=== PATIENT | female | born 2000 | race Caucasian/White ===

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

== ENCOUNTER 2024-07-10 16:55 | Emergency (ER) | payer MEDICAID, OTHER ==
[~2024-07-10] VITALS: Ht 160 cm; Wt 56.7 kg
[2024-07-10 16:58] VITALS: BP 122/78; PULSE 80; RESP 16; TEMP 98.5; O2SAT 99
[2024-07-10] MEDS: LIDOCAINE 5% 1 EA PATCH TP ONE (18:06)
[2024-07-10] MEDS: KETOROLAC 30 MG/ML VIAL IM ONE (18:07)
[2024-07-10] MEDS ORDERED: LID5T TP (18:22)
[2024-07-10] MEDS ORDERED: IBUP-2213 PO (18:22)
[2024-07-10] MEDS ORDERED: METH-1681 PO (18:22)
[2024-07-10 18:56] VITALS: BP 122/78; PULSE 80; RESP 16; TEMP 98.5; O2SAT 99
== END 2024-07-10 19:00 | disposition home or self-care (01) ==
LOC: MED 16:55
DX: S39.012A Strain of muscle, fascia and tendon of lower back, initial encounter (principal); X50.0XXA Overexertion from strenuous movement or load, initial encounter; Y92.89 Other specified places as the place of occurrence of the external cause; Y93.89 Activity, other specified; Y99.8 Other external cause status
CPT/HCPCS: 81025; 96372; 99283; J1885